=== PATIENT | female | born 1970 | race American Indian/Alaskan Native ===

== ENCOUNTER 2021-11-16 20:38 | Emergency (ER) | payer OTHER ==
--- NOTE | 2021-11-16 22:34 | XRay Report ---
Right shoulder, 3 views HISTORY: Injury COMPARISON: None FINDINGS: There is no acute fracture or malalignment of the right shoulder. Signer Name: Tino Ramirez MD Signed: 11/16/2021 10:30 PM Workstation Name: [id number]
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
--- NOTE | 2021-11-17 05:55 | Cat Scan Report ---
CT HEAD WITHOUT CONTRAST INDICATION / CLINICAL INFORMATION: Headache. TECHNIQUE: All CT scans at this location are performed using CT dose reduction for ALARA by means of automated exposure control. COMPARISON: None available. FINDINGS: HEMORRHAGE: None. EXTRA-AXIAL SPACES: Normal in size and morphology for the patient's age. VENTRICULAR SYSTEM: Normal in size and morphology for the patient's age. CEREBRAL PARENCHYMA: No significant abnormality. No acute territorial infarct. MIDLINE SHIFT / HERNIATION: None. CEREBELLUM / BRAINSTEM: No significant abnormality. ORBITS: Normal as visualized SOFT TISSUES: No significant abnormality. SKULL: No significant abnormality. PARANASAL SINUSES / MASTOID AIR CELLS: Air-fluid level within the left maxillary sinus suggesting acu te sinusitis. ADDITIONAL FINDINGS: None. IMPRESSION: 1. No acute intracranial abnormality. 2. Findings suggesting acute sinusitis. Signer Name: Blair Raymundo DO Signed: 11/17/2021 5:51 AM Workstation Name: [id number]
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
[2021-11-17 07:18] VITALS: BP 126/68
== END 2021-11-17 07:18 | disposition home or self-care (01) ==
LOC: ED 20:38
DX: S00.83XA Contusion of other part of head, initial encounter (principal); Y08.89XA Assault by other specified means, initial encounter; Y93.89 Activity, other specified; Y92.89 Other specified places as the place of occurrence of the external cause; Y99.8 Other external cause status; J01.90 Acute sinusitis, unspecified
CPT/HCPCS: 70450; 70486; 99284